=== PATIENT | female | born 1965 | race Caucasian/White ===

== ENCOUNTER 2016-05-31 14:22 | Emergency (ER) | payer MEDICARE | END 2016-05-31 18:10 | disposition home or self-care (01) | LOC: ER1 14:22 | DX: S82.61XA Displaced fracture of lateral malleolus of right fibula, initial encounter for closed fracture (principal); E11.9 Type 2 diabetes mellitus without complications; Z86.73 Personal history of transient ischemic attack (TIA), and cerebral infarction without residual deficits; Z95.1 Presence of aortocoronary bypass graft; Z79.82 Long term (current) use of aspirin; Z79.02 Long term (current) use of antithrombotics/antiplatelets; Z79.4 Long term (current) use of insulin; W18.39XA Other fall on same level, initial encounter; Y92.481 Parking lot as the place of occurrence of the external cause; X50.1XXA Overexertion from prolonged static or awkward postures, initial encounter | CPT/HCPCS: 73564; 73590; 73610; 73630; 99283 ==